=== PATIENT | female | born 1950 | race Caucasian/White ===

== ENCOUNTER 2024-08-05 07:02 | Observation (INO) | payer MEDICARE ==
[2024-08-01 16:38] VITALS: BMI 25.7
[2024-08-05] MEDS ORDERED: EPINEPHrine 1 MG/ML VIAL ONE ×2 (07:30→07:37)
[2024-08-05] MEDS ORDERED: CEFAZOLIN 2 GM VIAL ONE (07:31)
[2024-08-05] MEDS ORDERED: Lidocaine 1% (PF) 30 ML VIAL ONE (07:37)
[2024-08-05] MEDS ORDERED: fentaNYL 50 mcg/mL 1 mL Vial ONE ×5 (07:44→11:57)
[2024-08-05] MEDS ORDERED: SUGAMMADEX SODIUM 200 MG/2 ML VIAL ONE (07:44)
[2024-08-05] MEDS ORDERED: PROPOFOL 20 ML ONE (07:44)
[2024-08-05] MEDS ORDERED: Dexamethasone 20 MG/5 ML VIAL ONE (07:44)
[2024-08-05] MEDS ORDERED: Rocuronium Bromide 10 MG/ML (10ML VIAL) ONE (07:44)
[2024-08-05] MEDS ORDERED: Ondansetron PF 4 MG/2 ML Vial ONE ×2 (07:44→10:27)
[2024-08-05] MEDS ORDERED: Lidocaine 1% PF 5 ML VIAL ONE (07:44)
[2024-08-05] MEDS ORDERED: Glycopyrrolate 0.2 MG/ML 5 ML SYRINGE ONE (07:45)
[2024-08-05] MEDS ORDERED: Midazolam HCl 2 mg/2 ml Vial ONE (07:45)
[2024-08-05 08:07] LABS: Hematocrit 39.1 % (34.9-44.5); Hemoglobin 12.4 g/dL (12.0-15.5)
[2024-08-05 08:17] LABS: Anion Gap 13 mmol/L (10-20); BUN (Urea Nitrogen) 31 mg/dL (9.8-20.1); Calc. Creatinine Clearance 53 mL/min (70-130); Calcium 9.7 mg/dL (7.8-10.44); Carbon Dioxide 21 mmol/L (23-31); Chloride 112 mmol/L (98-107); Estimated GFR 59; Glucose 95 mg/dL (83-110); Potassium 4.3 mmol/L (3.5-5.1); Sodium 142 mmol/L (136-145)
[2024-08-05] MEDS ORDERED: Chlorhexidine Gluconate 15 ML UDCUP SSP ONE (08:34)
[2024-08-05] MEDS ORDERED: Labetalol HCl 100 MG/20 ML VIAL ONE (08:52)
[2024-08-05] MEDS ORDERED: Bupivacaine PF 0.5% 30 ML VIAL ONE (09:04)
[2024-08-05] MEDS ORDERED: Hydrocodone-Acetamin 15 ML UDCUP ONE (12:17)
[2024-08-05] MEDS ORDERED: HYDROcodone/Acetaminophen 5/325 mg Tablet ONE (12:24)
[2024-08-05] MEDS ORDERED: Guaifenesin DM 100-10/5 ML UDCUP PO PRN (14:05)
[2024-08-05] MEDS ORDERED: Senokot S 8.6-50 MG TAB PO PRN (14:05)
[2024-08-05] MEDS: traMADol HCl 50 MG TAB PO PRN (15:46)
[2024-08-05] MEDS: Lidocaine Viscous Sol 2% 15 ml UD Cup SSP PRN (17:16)
[2024-08-05] MEDS: Sodium Chloride 0.9% 1,000 ML IV SCH (17:17)
[2024-08-05] MEDS: Morphine 2 MG/ML VIAL SLOW IVP PRN (17:19)
[2024-08-06] MEDS: Melatonin 3 MG TAB PO SCH (01:15)
[2024-08-06 04:21] LABS: #Basophils 0.03 10x3/uL (0.0-0.2); #Eosinophils 0.02 10x3/uL (0.0-0.5); #Monocytes 1.41 10x3/uL (0.0-1.1); #Neutrophils 15.36 10x3/uL (1.5-8.4); %Basophils 0.2 % (0.0-2.0); %Eosinophils 0.1 % (0.0-6.0); %Lymphocytes 6.1 % (18.0-47.0); %Monocytes 7.8 % (0.0-10.0); %Neutrophils 85.4 % (40.0-75.0); Hematocrit 35.3 % (34.9-44.5); Hemoglobin 11.6 g/dL (12.0-15.5); Mean Corpuscular HGB CONC 32.9 g/dL (32.0-36.0); Mean Corpuscular Hemoglobin 29.7 pg (27.0-33.0); Mean Corpuscular Volume 90.5 fL (81.6-98.3); Mean Platelet Volume 10.7 fL (7.4-10.4); Platelet Count 309 10x3/uL (150-450); RBC Distribution Width 14.6 % (11.5-14.5)
[2024-08-06 04:32] LABS: Anion Gap 13 mmol/L (10-20); BUN (Urea Nitrogen) 24 mg/dL (9.8-20.1); Calc. Creatinine Clearance 62 mL/min (70-130); Calcium 8.8 mg/dL (7.8-10.44); Carbon Dioxide 20 mmol/L (23-31); Chloride 112 mmol/L (98-107); Estimated GFR 70; Glucose 123 mg/dL (83-110); Potassium 4.3 mmol/L (3.5-5.1); Sodium 141 mmol/L (136-145)
[2024-08-06] MEDS: FLU (Fluad Triv) TS24-25 (65UP)/MF59C/PF 45 MCG/0.5 ML Syringe IM ONE (05:04)
[2024-08-06] MEDS: Multivit, Therapeutic 1 TAB PO SCH (09:20)
[2024-08-06] MEDS: Enoxaparin 40 MG (0.4 mL) SYRINGE SC SCH (09:24)
[2024-08-06] MEDS: Atorvastatin Calcium 40 MG TAB PO SCH (09:24)
[2024-08-06] MEDS: Lisinopril 10 MG TAB PO SCH (09:25)
[2024-08-06 11:09] LABS: Bilirubin Neg (Negative); Blood, Urine Negative (Negative); Clarity Clear (Clear); Glucose, Urine (Dipstick) Normal (Negative); Ketone, Urine Negative (Negative); Leukocyte Negative (Negative); Nitrite Negative (Negative); Protein, Urine (Dipstick) 100 mg/dl (Neg-Trace); Specific Gravity, Urine 1.015 (1.005-1.030); Urobilinogen Normal mg/dL (Less than 2)
[2024-08-06 11:18] LABS: Bacteria/HPF None Seen HPF (None Seen); CAUTI Indications for Culture Fever or rigors; RBC/HPF 0-3 HPF (0-3); Squamous Epithelial 0-3 HPF (0-3); Urine Culture Reflex No No; WBC/HPF 0-3 HPF (0-3)
[2024-08-06 12:32] VITALS: BP 150/77; TEMP 98.9
== END 2024-08-06 10:43 | disposition home or self-care (01) ==
LOC: CSHSDC 07:02 → CSHTELE 13:35
PROVIDERS: ADMIT Otolaryngology; ATTEND Otolaryngology
PROC: 0CB7XZZ Excision of Tongue, External Approach (ICD-10-PCS; principal; 2024-08-05)
PROC: 0BJ08ZZ Inspection of Tracheobronchial Tree, Via Natural or Artificial Opening Endoscopic (ICD-10-PCS; 2024-08-05)
DX: C02.9 Malignant neoplasm of tongue, unspecified (principal); H90.3 Sensorineural hearing loss, bilateral; I10 Essential (primary) hypertension; E78.5 Hyperlipidemia, unspecified; J44.9 Chronic obstructive pulmonary disease, unspecified; Z98.49 Cataract extraction status, unspecified eye; Z87.891 Personal history of nicotine dependence; Z79.1 Long term (current) use of non-steroidal anti-inflammatories (NSAID); Z79.899 Other long term (current) drug therapy
CPT/HCPCS: 31622; 41120; 71045; 80048 ×2; 81001; 85014; 85018; 85025; 93005; 94762; J0171; J0665; J1100; J2250; J2272 ×2; J2405; J2704; J3010; J7030; 36415; 88309; 88331; 88332; 93010

== ENCOUNTER 2025-03-09 21:49 | Inpatient (IN) | payer MEDICARE ==
[2025-03-09] MEDS ORDERED: Ondansetron PF 4 MG/2 ML Vial IVP PRN (22:44)
[2025-03-09 22:52] VITALS: BMI 22.5
[2025-03-09] MEDS: VANCOMYCIN 1.25 GM/250 ML BAG 1.25 GM in Premix 1 BAG IVPB SCH (23:52)
[2025-03-10 06:52] LABS: Hematocrit 26.2 % (34.9-44.5); Hemoglobin 8.6 g/dL (12.0-15.5); Mean Corpuscular Hemoglobin 29.6 pg (27.0-33.0); Mean Corpuscular Volume 90.0 fL (81.6-98.3); Platelet Count 488 10x3/uL (150-450); Red Blood Cell (RBC) Count 2.91 10x6/uL (3.90-5.03); White Blood Cell (WBC) Count 31.99 10x3/uL (3.5-10.5)
[2025-03-10 07:08] LABS: Anion Gap 19 mmol/L (10-20); BUN (Urea Nitrogen) 17 mg/dL (9.8-20.1); Calc. Creatinine Clearance 66 mL/min (70-130); Calcium 8.4 mg/dL (7.8-10.44); Carbon Dioxide 19 mmol/L (23-31); Chloride 110 mmol/L (98-107); Glucose 85 mg/dL (83-110); Potassium 3.8 mmol/L (3.5-5.1); Sodium 144 mmol/L (136-145); Vancomycin, Random 21.3 ug/mL (See Comment)
[2025-03-10 07:56] LABS: Anisocytosis SLIGHT = 6-15 cells (100X) (0-5/hpf); MDiff Complete? YES; Platelet Adequacy Comment Appears Increased
[2025-03-10] MEDS: Vancomycin 1 GM in Sodium Chloride 0.9% 250 ML 250 ML IVPB SCH (10:03)
[2025-03-10] MEDS: Famotidine/PF 20 mg/2ml Vial SLOW IVP SCH (10:03)
[2025-03-10] MEDS: Ketorolac Tromethamine 30 MG (1 mL) VIAL IVP SCH (10:42)
[2025-03-10] MEDS: Acetaminophen 325 MG TAB PO PRN (17:38)
[2025-03-10] MEDS: Gabapentin 100 MG CAP PO SCH (22:37)
[2025-03-10] MEDS: Melatonin 3 MG TAB PO SCH (22:37)
[2025-03-10] MEDS: Senokot 8.6 MG TAB PO SCH (22:37)
[2025-03-10] MEDS: Pantoprazole 40 MG DR.TAB PO SCH (22:37)
[2025-03-11 08:25] LABS: #Basophils 0.08 10x3/uL (0.0-0.2); #Eosinophils Less than 0.03 10x3/uL (0.0-0.5); #Monocytes 1.83 10x3/uL (0.0-1.1); #Neutrophils 19.02 10x3/uL (1.5-8.4); %Basophils 0.4 % (0.0-2.0); %Eosinophils 0.1 % (0.0-6.0); %Lymphocytes 4.4 % (18.0-47.0); %Monocytes 8.2 % (0.0-10.0); %Neutrophils 85.1 % (40.0-75.0); Hematocrit 25.8 % (34.9-44.5); Hemoglobin 8.4 g/dL (12.0-15.5); Mean Corpuscular Hemoglobin 29.5 pg (27.0-33.0); Mean Corpuscular Volume 90.5 fL (81.6-98.3); Platelet Count 467 10x3/uL (150-450); Red Blood Cell (RBC) Count 2.85 10x6/uL (3.90-5.03); White Blood Cell (WBC) Count 22.34 10x3/uL (3.5-10.5)
[2025-03-11 08:37] LABS: Anion Gap 21 mmol/L (10-20); BUN (Urea Nitrogen) 14 mg/dL (9.8-20.1); Calc. Creatinine Clearance 60 mL/min (70-130); Calcium 8.2 mg/dL (7.8-10.44); Carbon Dioxide 14 mmol/L (23-31); Chloride 114 mmol/L (98-107); Glucose 82 mg/dL (83-110); Potassium 3.6 mmol/L (3.5-5.1); Sodium 145 mmol/L (136-145)
[2025-03-11] MEDS: Amiodarone 200 MG TAB PO SCH (10:26)
[2025-03-11] MEDS ORDERED: Iopamidol 370 76% 100 ML VIAL ONE (10:38)
[2025-03-11] MEDS: Scopolamine 1 mg/72 hour Patch TD SCH (18:40)
[2025-03-11 19:49] LABS: ALV-art Gradient 578.110 mmHg (0-20); Actual Bicarbonate (HCO3a) 19.8 mEq/L (22-28); Analyzer IN Cardio CS ICU; Base Excess (BEa) -3.5 mEq/L (-2.0 to +3.0); CO2 Tension 29.4 mmHg (35.0-45.0); Calcium, Ionized (arterial) 1.22 mmol/L (1.12-1.30); Hematocrit-ABG 27 % (36.0-47.0); Hemoglobin (Hb) 9.1 g/dL (12.0-16.0); O2 Tension (PaO2), arterial 41.1 mmHg (> 70.0); Potassium - ABG Lab 3.06 mmol/L (3.70-5.30); Puncture Site Right Radial artery; pH, Arterial 7.447 (7.35-7.45)
[2025-03-11 20:14] LABS: #Basophils 0.09 10x3/uL (0.0-0.2); #Eosinophils 0.05 10x3/uL (0.0-0.5); #Monocytes 1.71 10x3/uL (0.0-1.1); #Neutrophils 11.80 10x3/uL (1.5-8.4); %Basophils 0.6 % (0.0-2.0); %Eosinophils 0.3 % (0.0-6.0); %Lymphocytes 8.0 % (18.0-47.0); %Monocytes 11.3 % (0.0-10.0); %Neutrophils 77.9 % (40.0-75.0); Hematocrit 25.1 % (34.9-44.5); Hemoglobin 8.3 g/dL (12.0-15.5); Mean Corpuscular Hemoglobin 29.5 pg (27.0-33.0); Mean Corpuscular Volume 89.3 fL (81.6-98.3); Platelet Count 465 10x3/uL (150-450); Red Blood Cell (RBC) Count 2.81 10x6/uL (3.90-5.03); White Blood Cell (WBC) Count 15.16 10x3/uL (3.5-10.5)
[2025-03-11 20:25] LABS: ALT (SGPT) 12 U/L (Less than 34); AST (SGOT) 20 U/L (11-34); Albumin 2.0 g/dL (3.1-4.5); Alkaline Phosphatase 68 U/L (40-110); Anion Gap 14 mmol/L (10-20); BUN (Urea Nitrogen) 12 mg/dL (9.8-20.1); Bilirubin, Total 0.3 mg/dL (0.3-1.2); Calc. Creatinine Clearance 68 mL/min (70-130); Calcium 8.5 mg/dL (7.8-10.44); Carbon Dioxide 20 mmol/L (23-31); Chloride 115 mmol/L (98-107); Globulin 3.5 g/dL (2.4-3.5); Glucose 88 mg/dL (83-110); Potassium 3.5 mmol/L (3.5-5.1); Sodium 145 mmol/L (136-145)
[2025-03-12 01:09] LABS: ALV-art Gradient 537.875 mmHg (0-20); Actual Bicarbonate (HCO3a) 20.6 mEq/L (22-28); Analyzer IN Cardio CS ICU; Base Excess (BEa) -3.2 mEq/L (-2.0 to +3.0); CO2 Tension 31.3 mmHg (35.0-45.0); Calcium, Ionized (arterial) 1.19 mmol/L (1.12-1.30); Hematocrit-ABG 22 % (36.0-47.0); Hemoglobin (Hb) 7.6 g/dL (12.0-16.0); O2 Tension (PaO2), arterial 136.0 mmHg (> 70.0); Potassium - ABG Lab 2.93 mmol/L (3.70-5.30); Puncture Site Right Radial artery; pH, Arterial 7.436 (7.35-7.45)
[2025-03-12 04:12] LABS: #Basophils 0.07 10x3/uL (0.0-0.2); #Eosinophils 0.07 10x3/uL (0.0-0.5); #Monocytes 1.20 10x3/uL (0.0-1.1); #Neutrophils 8.08 10x3/uL (1.5-8.4); %Basophils 0.7 % (0.0-2.0); %Eosinophils 0.7 % (0.0-6.0); %Lymphocytes 9.5 % (18.0-47.0); %Monocytes 11.2 % (0.0-10.0); %Neutrophils 75.7 % (40.0-75.0); Hematocrit 21.7 % (34.9-44.5); Hemoglobin 7.0 g/dL (12.0-15.5); Mean Corpuscular Hemoglobin 29.0 pg (27.0-33.0); Mean Corpuscular Volume 90.0 fL (81.6-98.3); Platelet Count 388 10x3/uL (150-450); Red Blood Cell (RBC) Count 2.41 10x6/uL (3.90-5.03); White Blood Cell (WBC) Count 10.67 10x3/uL (3.5-10.5)
[2025-03-12 04:25] LABS: Vancomycin, Random 16.2 ug/mL (See Comment)
[2025-03-12 04:28] LABS: Anion Gap 19 mmol/L (10-20); BUN (Urea Nitrogen) 12 mg/dL (9.8-20.1); Calc. Creatinine Clearance 66 mL/min (70-130); Calcium 7.8 mg/dL (7.8-10.44); Carbon Dioxide 17 mmol/L (23-31); Chloride 116 mmol/L (98-107); Glucose 81 mg/dL (83-110); Potassium 2.8 mmol/L (3.5-5.1); Sodium 149 mmol/L (136-145)
[2025-03-12 04:35] LABS: Troponin I 0.051 ng/mL (< 0.028)
[2025-03-12] MEDS ORDERED: Electrolyte Replacement Protocol 1 EACH FS PRN (06:45)
[2025-03-12 07:03] LABS: Magnesium 1.5 mg/dL (1.6-2.6)
[2025-03-12] MEDS: Glycopyrrolate 0.2 MG/ML 5 ML SYRINGE SLOW IVP SCH (09:52)
[2025-03-12] MEDS: Potassium Chloride 20 MEQ in Premix 1 BAG IVPB SCH ×4 (09:53→20:52)
[2025-03-12] MEDS: Magnesium 2 GM/50 ML(in water) 2 GM in Premix 1 BAG IVPB SCH (15:42)
[2025-03-12] MEDS: cefTRIAXone\\ROCEPHIN 2 GM in Sodium Chloride 0.9% 100 ML IVPB SCH (17:06)
[2025-03-13 05:35] LABS: #Basophils 0.05 10x3/uL (0.0-0.2); #Eosinophils 0.10 10x3/uL (0.0-0.5); #Monocytes 1.10 10x3/uL (0.0-1.1); #Neutrophils 7.98 10x3/uL (1.5-8.4); %Basophils 0.5 % (0.0-2.0); %Eosinophils 0.9 % (0.0-6.0); %Lymphocytes 11.3 % (18.0-47.0); %Monocytes 10.2 % (0.0-10.0); %Neutrophils 73.8 % (40.0-75.0); Hematocrit 24.4 % (34.9-44.5); Hemoglobin 7.7 g/dL (12.0-15.5); Mean Corpuscular Hemoglobin 28.8 pg (27.0-33.0); Mean Corpuscular Volume 91.4 fL (81.6-98.3); Platelet Count 395 10x3/uL (150-450); Red Blood Cell (RBC) Count 2.67 10x6/uL (3.90-5.03); White Blood Cell (WBC) Count 10.81 10x3/uL (3.5-10.5)
[2025-03-13 05:49] LABS: Vancomycin, Random 14.8 ug/mL (See Comment)
[2025-03-13 05:56] LABS: Anion Gap 12 mmol/L (10-20); BUN (Urea Nitrogen) 11 mg/dL (9.8-20.1); Calc. Creatinine Clearance 75 mL/min (70-130); Calcium 8.1 mg/dL (7.8-10.44); Carbon Dioxide 19 mmol/L (23-31); Chloride 118 mmol/L (98-107); Glucose 73 mg/dL (83-110); Magnesium 2.1 mg/dL (1.6-2.6); Potassium 5.1 mmol/L (3.5-5.1); Sodium 144 mmol/L (136-145)
[2025-03-13 09:31] LABS: Potassium 4.8 mmol/L (3.5-5.1)
[2025-03-14] MEDS: Albuterol 2.5 MG (3 mL) NEB NEB PRN (00:48)
[2025-03-14 04:06] LABS: Anion Gap 15 mmol/L (10-20); BUN (Urea Nitrogen) 11 mg/dL (9.8-20.1); Calc. Creatinine Clearance 78 mL/min (70-130); Calcium 8.4 mg/dL (7.8-10.44); Carbon Dioxide 19 mmol/L (23-31); Chloride 113 mmol/L (98-107); Glucose 80 mg/dL (83-110); Potassium 5.1 mmol/L (3.5-5.1); Sodium 142 mmol/L (136-145)
[2025-03-14 04:29] LABS: Platelet Count 384 10x3/uL (150-450)
[2025-03-14 04:30] LABS: Hematocrit 25.2 % (34.9-44.5); Hemoglobin 8.3 g/dL (12.0-15.5); Mean Corpuscular Hemoglobin 29.0 pg (27.0-33.0); Mean Corpuscular Volume 88.1 fL (81.6-98.3); Red Blood Cell (RBC) Count 2.86 10x6/uL (3.90-5.03); White Blood Cell (WBC) Count 10.52 10x3/uL (3.5-10.5)
[2025-03-14 04:32] LABS: MDiff Complete? YES; Platelet Adequacy Comment Appears Adequate; RBC Morphology Within Normal Limits
[2025-03-14 16:54] VITALS: BMI 24.8
[2025-03-15 04:10] LABS: #Basophils 0.13 10x3/uL (0.0-0.2); #Eosinophils 0.12 10x3/uL (0.0-0.5); #Monocytes 1.16 10x3/uL (0.0-1.1); #Neutrophils 8.53 10x3/uL (1.5-8.4); %Basophils 1.1 % (0.0-2.0); %Eosinophils 1.0 % (0.0-6.0); %Lymphocytes 14.2 % (18.0-47.0); %Monocytes 9.5 % (0.0-10.0); %Neutrophils 69.5 % (40.0-75.0); Hematocrit 29.2 % (34.9-44.5); Hemoglobin 9.5 g/dL (12.0-15.5); Mean Corpuscular Hemoglobin 28.4 pg (27.0-33.0); Mean Corpuscular Volume 87.2 fL (81.6-98.3); Platelet Count 496 10x3/uL (150-450); Red Blood Cell (RBC) Count 3.35 10x6/uL (3.90-5.03); White Blood Cell (WBC) Count 12.25 10x3/uL (3.5-10.5)
[2025-03-15 04:23] LABS: Anion Gap 15 mmol/L (10-20); BUN (Urea Nitrogen) 5 mg/dL (9.8-20.1); Calc. Creatinine Clearance 84 mL/min (70-130); Calcium 8.6 mg/dL (7.8-10.44); Carbon Dioxide 25 mmol/L (23-31); Chloride 103 mmol/L (98-107); Glucose 90 mg/dL (83-110); Potassium 3.5 mmol/L (3.5-5.1); Sodium 139 mmol/L (136-145)
[2025-03-15 08:17] VITALS: TEMP 96.9
[2025-03-15] MEDS: Lisinopril 5 MG TAB PO SCH (10:20)
[2025-03-15 11:51] VITALS: BP 135/95
[2025-03-16] MEDS ORDERED: Amoxicillin/Potassium Clav 875 MG TAB PO SCH (07:00)
[2025-03-16] MEDS ORDERED: Cefdinir 300 MG CAP PO SCH (07:00)
== END 2025-03-15 11:45 | disposition home or self-care (01) | DRG 871 ==
LOC: CSHTELE 21:49 → CSHICU 03-11 19:21
PROVIDERS: ADMIT Hospitalist; ATTEND Hospitalist
PROC: 3E03329 Introduction of Other Anti-infective into Peripheral Vein, Percutaneous Approach (ICD-10-PCS; principal; 2025-03-09)
PROC: 4A133R1 Monitoring of Arterial Saturation, Peripheral, Percutaneous Approach (ICD-10-PCS; 2025-03-11)
PROC: 5A0935A Assistance with Respiratory Ventilation, Less than 24 Consecutive Hours, High Flow/Velocity Cannula (ICD-10-PCS; 2025-03-11)
DX: A41.9 Sepsis, unspecified organism (principal); G93.41 Metabolic encephalopathy; J69.0 Pneumonitis due to inhalation of food and vomit; J96.01 Acute respiratory failure with hypoxia; R53.2 Functional quadriplegia; E87.0 Hyperosmolality and hypernatremia; I31.39 Other pericardial effusion (noninflammatory); J44.9 Chronic obstructive pulmonary disease, unspecified; K21.9 Gastro-esophageal reflux disease without esophagitis; E78.5 Hyperlipidemia, unspecified; I10 Essential (primary) hypertension; C02.9 Malignant neoplasm of tongue, unspecified; G93.89 Other specified disorders of brain; K11.21 Acute sialoadenitis; E87.6 Hypokalemia; R47.1 Dysarthria and anarthria; Z86.73 Personal history of transient ischemic attack (TIA), and cerebral infarction without residual deficits; I48.0 Paroxysmal atrial fibrillation; Z79.899 Other long term (current) drug therapy
CPT/HCPCS: 36415; 36416; 36600; 71045; 71275; 80048; 80202; 82805; 83605; 83735; 83880; 84484; 85025; 86140; 93306; 94640; 94760; 94762; 97139; J0692; J0696; J1308; J1885; J2543; J3373; J3475; J3480; J7030; J7050; J7120; J7611; Q9967